=== PATIENT | male | born 1970 | race Caucasian/White ===

== ENCOUNTER 2024-01-19 20:34 | Inpatient (IN) | payer OTHER, MEDICARE, SELFPAY ==
--- NOTE | ~2024-01-19 | US_ITS ---
EXAMINATION: US arterial ankle brachial ind DATE: 01/20/2024 14:33 INDICATION: Peripheral arterial disease. TECHNIQUE: Segmental pressures and plethysmographic and Doppler waveforms of the brachial and lower e xtremity arteries were obtained. COMPARISON: None. FINDINGS: Right and left brachial artery pressures of 114 mm Hg and 111 mm Hg, respectively, are concordant (no rmal difference <= 30 mmHg). The right ankle-brachial index (ALFRED) is 0.54 (normal >= 0.9-1.0). The right great toe-brachial index (TBI) cannot be measured (normal >= 0.65). Arterial Doppler waveforms are monophasic and broadened at the ankle. The left ALFRED is 0.39. The left TBI cannot be measured. Arterial Doppler waveforms are noisy at the an kle. IMPRESSION: 1. Moderately decreased right ALFRED and severely decreased left ALFRED, consistent with arterial occlusive disease. 2. Great toe arterial signal not reliably detectable on either side. Reviewed, dictated and finalized at location A. IMPRESSION: 1. Moderately decreased right ALFRED and severely decreased left ALFRED, consistent w ith arterial occlusive disease. 2. Great toe arterial signal not reliably detectable on either side.
--- NOTE | ~2024-01-19 | CT_ITS ---
EXAMINATION: CTA abd aorta runoff DATE: 01/20/2024 14:54 INDICATION: Peripheral arterial disease. TECHNIQUE: Computed tomographic angiography (CTA) of the abdominal, pelvis, and both lower extremitie s was performed with 122 mL Omnipaque-350 intravenous contrast. Automated exposure control and iterat tyrese reconstruction technique were employed. The dose-length product was 613.66 mGy-cm. Maximum intens ity projection 3D-reconstructions of the arteries were created by the technologist on a separate work station. COMPARISON: ABIs 01/20/2024 FINDINGS: ABDOMINAL AORTA AND ITS BRANCHES: Aortic atherosclerosis is noted. There is severe stenosis of celiac axis and moderate stenosis of sup erior mesenteric artery. Splenic artery and common hepatic artery arise from superior mesenteric jeffry ry. There is mild stenosis of the renal arteries. There is no significant stenosis of inferior mesent dolly artery. PELVIC VASCULATURE: There is mild stenosis of the common iliac arteries, external iliac arteries, and internal iliac jeffry dewayne. RIGHT LOWER EXTREMITY VASCULATURE: There is moderate stenosis of the right common femoral artery. There is mild stenosis of right profun da femoral artery. There is severe stenosis of right superficial femoral artery. There is total occlu tori of right superficial femoral artery distally with reconstitution of flow in the popliteal artery . There is severe stenosis of the proximal popliteal artery and mild stenosis of distal popliteal art cristina. There is mild stenosis of the tibioperoneal trunk. There is mild stenosis of anterior tibial art cristina and posterior tibial artery. There is no significant stenosis of the peroneal artery. LEFT LOWER EXTREMITY VASCULATURE: There is moderate stenosis of left common femoral artery. There is mild stenosis of the fundus femora l artery. There is a long total occlusion of left superficial femoral artery with reconstitution of f low in above-knee popliteal artery. There is severe stenosis of the above-knee popliteal artery and m oderate stenosis of below-knee popliteal artery. There is mild stenosis of moderate stenosis of the t ibioperoneal trunk. There is moderate stenosis of the proximal anterior tibial artery. There is mild stenosis of posterior tibial artery and peroneal artery. ADDITIONAL FINDINGS: The visualized portions of the lung bases demonstrate mild atelectasis. No pleural effusion. The hear t size is normal. No pericardial effusion. There are coronary artery calcifications. Paraesophageal v arices are noted. There is a subcapsular hematoma of the liver with maximum thickness of 8 mm. Calcif ications in the liver are consistent with old granulomatous disease. The gallbladder is normal. The s pleen is small. There are surgical clips in left upper quadrant. The pancreas and adrenal glands are normal. There is cortical thinning of the kidneys. There is a 6 mm cyst in right kidney. There are no dilated loops of bowel. The appendix is not visualized. There are no pathologically enlarged lymph n odes. There is no free intraperitoneal fluid. There is severe lower lumbar spondylosis. There is scre w fixation of right fibula. There is an old healed fracture of distal right tibia. IMPRESSION: 1. Severe stenosis of celiac axis and moderate stenosis of superior mesenteric artery. 2. Moderate stenosis of right common femoral artery. 3. Total occlusion of right superficial femoral artery with reconstitution of flow in popliteal arter y. 4. Three-vessel runoff on the right. 5. Moderate stenosis of left common femoral artery. 6. Total occlusion of left superficial femoral artery with reconstitution of flow in above-knee popli teal artery. 7. Severe stenosis of left popliteal artery and moderate stenosis of the tibioperoneal trunk and prox imal anterior tibial artery. 8. Three-vessel runoff on the left. 9. Subcapsular hematoma of the liver.
--- NOTE | 2024-01-19 20:49 | ADMGEN ---
This patient, Armen Steward, was admitted to Medical Room 345-. Patient/family oriented to hospital policies and general routines including ID bracelet, bed and alarms, visiting hours, pain management, procedures, bathroom and other care routines, personal items, smoking policy, room service/diet, and visiting hours. Information on how to activate the Rapid Response Team has been discussed. Patient/Family are encouraged to report perceived risks to care and to ask questions if they do not understand what they are told or what they should do.
[2024-01-19 23:02] VITALS: BP 107/53; PULSE 82; RESP 20; TEMP 36.4; O2SAT 99; BMI 17.9
--- NOTE | 2024-01-19 23:28 | PM.IMHP ---
H&P: HPI History of Present Illness Date/Time: 01/19/24 23:30 Chief Complaint: Third toe osteomyelitis. Narrative: This is a pleasant 53-year-old male smoker with history of alcohol abuse, hypertension, chronic obstructive pulmonary disease, cirrhosis, peripheral vascular disease, and MRSA infection at the site of right ankle hardware who is being directly admitted to the medical floor from the emergency department at [facility] in [place] for treatment of 3rd toe osteomyelitis. The patient provides the following history. He reports having a callus at the tip of the left 3rd toe for quite some time which he ?popped off? recently. Since that time he has developed a painful ulcer which has been draining foul-smelling pus. He went to the ER today as the area has become dark in appearance. It is quite painful and the pain seems to spread up into his ankle and posterior calf. He goes on to say that is not unusual for him to have pain in his calf with walking and in fact he has seen a vascular surgeon regarding his claudication who told him that he would not operate unless the patient quit smoking. He denies fever, chills, sweats, nausea, and vomiting. In the ED: He was afebrile on arrival with stable vital signs. Labs were significant for WBC count of 11.52, hemoglobin 8.9, hematocrit 30.8, MCV 67.4, platelets 331, sodium 131, potassium 3.4, chloride 92, BUN 11, creatinine 1.22, glucose 107, CRP 3.21, lactic acid 2.4, ESR 117. Left 3rd toe x-ray showed findings consistent with osteomyelitis involving the tuft of the left 3rd distal phalanx. He was given a dose of vancomycin in transfer was initiated to [place] due to lack of surgery coverage. Review of Systems Review of Systems: 12 systems were reviewed. No recent cold or flu symptoms. No chest or pleuritic pain. No cough or shortness of breath. No nausea, vomiting, or diarrhea. He denies ever having signs or symptoms of alcohol withdrawal. No history of alcohol withdrawal seizure. Except as documented, all other systems were reviewed and are negative. [facility] Past Medical History Medical History (Updated 01/20/24 @ 00:01 by Sheri Taylor PA-C) Alcohol abuse Chronic obstructive pulmonary disease Chronic pain syndrome Cirrhosis of liver Gastroesophageal reflux disease GI bleed Hypertension MRSA infection Infected ankle hardware. Peripheral vascular disease Shingles Tobacco abuse Surgical History Surgical History (Updated 01/19/24 @ 23:57 by Sheri Taylor PA-C) History of appendectomy History of cataract extraction History of open reduction and internal fixation (ORIF) procedure Repair right lower extremity fracture complicated by MRSA infection require removal of hardware with irrigation and debridement. History of splenectomy Family History Family History Sibling Diabetes mellitus Mother Diabetes mellitus Grandparent Hypertension Social History Social History (Updated 01/19/24 @ 23:32 by Sheri Taylor PA-C) Social History: Surrogate medical decision maker: Tammy Steward, spouse. Code status: Full code. Smoking packs per day: 1 Smoking cigarettes per day: 20.0 Smoking status: Current some day smoker Tobacco type: cigarettes Alcohol intake: current Drinks per week: 105 Alcohol use details: Fifteen beers a day. Substance use type: marijuana Do You Feel Safe in your Home?: Yes Lack of Transportation: No Lack of Food: Never True Current Housing: I Have Housing Concerned About Future Housing: No Difficulty Paying Gas/Electric Bills: No Difficulty Paying for Meds: No Currently Unemployed: No Education: Grade School Difficulty w/ Childcare or Family Care: No Spiritual care concerns: No Meds Home Medications and Allergies Home Medications Medication Instructions Recorded Confirmed Type cyclobenzaprine 10 mg tablet 10 mg PO H
[2024-01-19] MEDS: PIPERACILLN/TAZ 3.375GM/NS50ML 3.375 GM/50 ML BAG IVPB (23:59)
[2024-01-20] VITALS: BP 107/53
[2024-01-20 00:02] LABS: Glucose Point of Care 118 mg/dl (65-105)
[2024-01-20] MEDS: HYDROcodone/acetaminophen (*CRX) 5-325 MG TABLET 1 TAB PO ×2 (00:03→20:20)
[2024-01-20] MEDS: VANCOMYCIN 1,500 MG/NS 500 ML 1,500 MG/500 ML BAG 125 MG IVPB (00:46)
[2024-01-20 05:31] LABS: Hematocrit 29.7 % (42.0-52.0); Hemoglobin 8.2 g/dL (14.0-18.0); Immature Reticulocyte Fraction 26.9 % (3.0-15.9); Mean Corpuscular HGB Conc 27.6 g/dl (32-36); Mean Corpuscular Hemoglobin 19.4 pg (26-34); Mean Corpuscular Volume 70.2 fl (80-100); Mean Platelet Volume 8.9 fl (7.4-10.4); Platelet Count Result 316 k/mm3 (150-375); Red Blood Count 4.23 M/mm3 (4.6-6.20); Red Cell Distribution Width 23.1 % (11.5-14.5); Reticulocyte Hemoglobin Conten 23.2 pg (28.2-36.6); Reticulocyte Percent 2.82 % (0.7-4.3); Reticulocytes Absolute 0.12 10^6/uL (0.02-0.10); White Blood Count 10.4 K/mm3 (4.5-10.0)
[2024-01-20 05:44] LABS: Iron 23 ug/dL (49-181)
[2024-01-20 05:48] LABS: Alanine Aminotransferase 13 U/L (6-50); Albumin Level 3.6 g/dL (3.5-5.1); Alkaline Phosphatase 155 U/L (38-126); Anion Gap 9 mmol/L (4-12); Aspartate Amino Transferase 29 U/L (17-59); Bilirubin,Total 0.6 mg/dL (0.2-1.3); Blood Urea Nitrogen 15 mg/dL (9-20); CRP 2.9 mg/dL (<1.0); Calcium 8.5 mg/dL (8.4-10.2); Carbon Dioxide 24 mmol/L (22-30); Chloride 102 mmol/L (98-107); Estimated CRCL calculation 55 ml/min; Estimated Glomerular Filt Rate > 60; Glucose 97 mg/dL (65-110); Magnesium 1.7 mg/dL (1.6-2.3); Potassium 3.8 mmol/L (3.4-5.0); Sodium 135 mmol/L (137-145)
[2024-01-20 05:54] LABS: Percent Iron Saturation 6 % (20-50)
[2024-01-20 06:00] VITALS: BP 125/76; PULSE 84; RESP 20; TEMP 36.3; O2SAT 100
[2024-01-20] MEDS: MORPHINE SULFATE (*CRX) 2 MG/ML INJ IV PUSH (06:21)
[2024-01-20 06:54] LABS: Folic Acid > 20.0 ng/mL (2.76->20)
[2024-01-20] MEDS: PIPERACILLN/TAZ 3.375GM/NS50ML 3.375 GM/50 ML BAG IVPB ×4 (07:20→23:46)
--- NOTE | 2024-01-20 07:39 | P.PNIM_ITS ---
Progress Note: A&P Assessment and Plan (1) Osteomyelitis of toe: Code(s): M86.9 - Osteomyelitis, unspecified Status: Acute Assessment and Plan: 01/20/24: * Continue Vancomycin and Zosyn * Consult placed to general surgery * ALFRED index ordered * Wound culture ordered * Neurological checks q2h * Continue pain control * CRP 2.9, WBC 10.4 (2) Peripheral vascular disease: Code(s): I73.9 - Peripheral vascular disease, unspecified Status: Acute Assessment and Plan: 01/20/24: * Will get ALFRED today * Patient has history of claudication (3) Alcohol abuse: Code(s): F10.10 - Alcohol abuse, uncomplicated Status: Acute Assessment and Plan: 01/20/24: * CIWA protocol in place * Drinks 15 beers a day * Denies history of withdrawal (4) Tobacco abuse: Code(s): Z72.0 - Tobacco use Status: Acute Assessment and Plan: 01/20/24: * current 1 pack per day user * Nicotine patch ordered (5) Hypertension: Code(s): I10 - Essential (primary) hypertension Status: Acute Assessment and Plan: 01/20/24: * B/P ranging 107/53-125/76 * continue Lasix and spironolactone (6) Chronic obstructive pulmonary disease: Code(s): J44.9 - Chronic obstructive pulmonary disease, unspecified Status: Acute Assessment and Plan: 01/20/24: * of note (7) Cirrhosis of liver: Code(s): K74.60 - Unspecified cirrhosis of liver Status: Acute Assessment and Plan: 01/20/24: * likely related to alcohol abuse * Liver enzymes and bili are WNL * continue to monitor lab trends (8) Gastroesophageal reflux disease: Code(s): K21.9 - Gastro-esophageal reflux disease without esophagitis Status: Acute Assessment and Plan: 01/20/24: * Continue protonix (9) Chronic pain syndrome: Code(s): G89.4 - Chronic pain syndrome Status: Acute Assessment and Plan: 01/20/24: * Continue [place] 5/325 and flexeril (10) Microcytic anemia: Code(s): D50.9 - Iron deficiency anemia, unspecified Status: Acute Assessment and Plan: 01/20/24: * Hgb 8.2, MVC 70.2, Iron 23, Ferritin 13.30, Folate >20.0, Vitamin B12 546 * Patient not able to tolerate oral ferrous sulfate and has not been taking this for quite some time Time Spent With Patient Time with patient: Greater than 35 minutes Subjective Date/time seen: 01/20/24 07:39 Interval history: This is a 53 year old male with a significant past medical history of alcohol abuse, hypertension, COPD, cirrhosis, peripheral vascular disease, MRSA infection at the site of right ankle hardware who was a direct admit to the medical floor at [facility] on 01/19/24 with osteomyelitis in his left 3rd toe. Patient had a callus at the tip of the left 3rd toe for quite some time which he popped off recently. Since that time he has developed a painful ulcer which started draining foul-smelling drainage. He originally presented to [facility] hospital with pain which spread up into his ankle and posterior calf. Work up at [facility] revealed osteomyelitis. [facility] transferred patient here as a direct admit to [facility] for surgical consultation. He was given a dose of Vancomycin en route. Work up in the hospital included labs which shown a WBC 10.4, Hgb 8.2, Na+ 135, Alk phos 155, CRP 2.9, Folate >20.0, TSH 3.60, Vitamin B12 546.0, Iron 23, TIBC 417, Ferritin 13.30. Patient was started on Vancomycin and Zosyn. On examination melissa
--- NOTE | 2024-01-20 07:39 | PM.IMPN ---
Progress Note: A&P Assessment and Plan (1) Osteomyelitis of toe: Code(s): M86.9 - Osteomyelitis, unspecified Status: Acute Assessment and Plan: 01/20/24: Continue Vancomycin and Zosyn Consult placed to general surgery ALFRED index ordered Wound culture ordered Neurological checks q2h Continue pain control CRP 2.9, WBC 10.4 (2) Peripheral vascular disease: Code(s): I73.9 - Peripheral vascular disease, unspecified Status: Acute Assessment and Plan: 01/20/24: Will get ALFRED today Patient has history of claudication (3) Alcohol abuse: Code(s): F10.10 - Alcohol abuse, uncomplicated Status: Acute Assessment and Plan: 01/20/24: CIWA protocol in place Drinks 15 beers a day Denies history of withdrawal (4) Tobacco abuse: Code(s): Z72.0 - Tobacco use Status: Acute Assessment and Plan: 01/20/24: current 1 pack per day user Nicotine patch ordered (5) Hypertension: Code(s): I10 - Essential (primary) hypertension Status: Acute Assessment and Plan: 01/20/24: B/P ranging 107/53-125/76 continue Lasix and spironolactone (6) Chronic obstructive pulmonary disease: Code(s): J44.9 - Chronic obstructive pulmonary disease, unspecified Status: Acute Assessment and Plan: 01/20/24: of note (7) Cirrhosis of liver: Code(s): K74.60 - Unspecified cirrhosis of liver Status: Acute Assessment and Plan: 01/20/24: likely related to alcohol abuse Liver enzymes and bili are WNL continue to monitor lab trends (8) Gastroesophageal reflux disease: Code(s): K21.9 - Gastro-esophageal reflux disease without esophagitis Status: Acute Assessment and Plan: 01/20/24: Continue protonix (9) Chronic pain syndrome: Code(s): G89.4 - Chronic pain syndrome Status: Acute Assessment and Plan: 01/20/24: Continue [place] 5/325 and flexeril (10) Microcytic anemia: Code(s): D50.9 - Iron deficiency anemia, unspecified Status: Acute Assessment and Plan: 01/20/24: Hgb 8.2, MVC 70.2, Iron 23, Ferritin 13.30, Folate >20.0, Vitamin B12 546 Patient not able to tolerate oral ferrous sulfate and has not been taking this for quite some time Time Spent With Patient Time with patient: Greater than 35 minutes Subjective Date/time seen: 01/20/24 07:39 Interval history: This is a 53 year old male with a significant past medical history of alcohol abuse, hypertension, COPD, cirrhosis, peripheral vascular disease, MRSA infection at the site of right ankle hardware who was a direct admit to the medical floor at [facility] on 01/19/24 with osteomyelitis in his left 3rd toe. Patient had a callus at the tip of the left 3rd toe for quite some time which he popped off recently. Since that time he has developed a painful ulcer which started draining foul-smelling drainage. He originally presented to [facility] with pain which spread up into his ankle and posterior calf. Work up at [facility] revealed osteomyelitis. [facility] transferred patient here as a direct admit to [facility] for surgical consultation. He was given a dose of Vancomycin en route. Work up in the hospital included labs which shown a WBC 10.4, Hgb 8.2, Na+ 135, Alk phos 155, CRP 2.9, Folate >20.0, TSH 3.60, Vitamin B12 546.0, Iron 23, TIBC 417, Ferritin 13.30. Patient was started on Vancomycin and Zosyn. On examination today patient is alert oriented x3, lying in the bed. Patient denies any fever, chills, nausea, vomiting, diarrhea, abdominal pain, chest pain, shortness a breath. Patient endorses pain in his left foot and ankle that he rates as moderate and a dry mouth. Plan for US arterial ankle and brachial index today. Order placed for wound cultures. General surgery consulted. Review of Systems Review of Systems: All systems reviewed & are unremarkable exce
[2024-01-20] MEDS: THIAMINE HCL 200 MG/2 ML VIAL 100 MG IV PUSH (09:32)
[2024-01-20 10:52] VITALS: BMI 17.6
[2024-01-20 14:00] VITALS: BP 133/75; PULSE 81; RESP 16; TEMP 36.3; O2SAT 100
--- NOTE | 2024-01-20 14:03 | PC.NURSE ---
Patient off the unit to US
--- NOTE | 2024-01-20 15:28 | P.CDI_ITS ---
CDI Query Clarification Request BMI 17.6 Nutritional Diagnostic Statement: Severe Protein Calorie Malnutrition as related to inadequate protein-energy intake with increased protein energy needs in setting of chronic disease as evidenced by moderate subcutaneous fat loss (orbital fat pads) and muscle wasting and significant weight loss of 9%(13 ibs) in 1 month. Please refer to the comprehensive nutrition assessment for further information. If you agree with the diagnosis of protein calorie malnutrition, please add to problem list including severity of malnutrition if known: * Mild * Moderate * Severe * Other/Unknown <GAEL Aguila - Last Filed: 01/20/24 15:29> Clarified Diagnosis Clarified Diagnosis: Patient has severe protein calorie malnutrition likely due to alcoholism and poor protein intake. <Pia Tejada APRN - Last Filed: 01/21/24 15:53>
--- NOTE | 2024-01-20 16:31 | PM.CNGS ---
Assessment and Plan Assessment and plan (1) Osteomyelitis of toe: Code(s): M86.9 - Osteomyelitis, unspecified Status: Acute Assessment and Plan: The patient has peripheral vascular disease with dry gangrene of his distal left 3rd toe. There is no surrounding cellulitis. His WBC count was 10,400 on admission. X-rays of the toe show osteomyelitis involving the tuft of the left 3rd distal phalanx. On exam, the distal phalanx is exposed at the area of the dry gangrene. There is no indication for urgent surgical intervention, although he will likely need his left 3rd toe amputated at some point, which was discussed with the patient. We have ordered ALFRED's and CTA runoff to further evaluate his peripheral vascular disease. He has multiple areas of stenosis bilaterally, but specifically with concern on the left lower extremity as this would potentially affect healing for an amputation. We would recommend referral to vascular surgery as an outpatient for evaluation prior to proceeding with a toe amputation. From our standpoint, he can be transitioned to oral antibiotics and discharged once his pain is well controlled with plan for close follow-up with vascular surgery as an outpatient. (2) Dry gangrene: Code(s): I96 - Gangrene, not elsewhere classified Status: Acute (3) Peripheral vascular disease: Code(s): I73.9 - Peripheral vascular disease, unspecified Status: Acute (4) Alcohol abuse: Code(s): F10.10 - Alcohol abuse, uncomplicated Status: Acute (5) Tobacco abuse: Code(s): Z72.0 - Tobacco use Status: Acute Assessment and Plan: Discussed the importance of smoking cessation, which the patient is aware of and has discussed with the vascular surgeon as well. (6) Cirrhosis of liver: Code(s): K74.60 - Unspecified cirrhosis of liver Status: Acute (7) Chronic obstructive pulmonary disease: Code(s): J44.9 - Chronic obstructive pulmonary disease, unspecified Status: Acute (8) Hypertension: Code(s): I10 - Essential (primary) hypertension Status: Acute (9) Microcytic anemia: Code(s): D50.9 - Iron deficiency anemia, unspecified Status: Acute Plan I have discussed the patient's case and plan of care with Dr. Gracia. History of Present Illness Consult details Consult date: 01/20/24 Reason for consult: other (Osteomyelitis) Requesting physician: Pia Tejada, MINOR Narrative: This is a 54-year-old man with a history of alcohol abuse, cirrhosis, tobacco abuse, hypertension, COPD, peripheral vascular disease, and MRSA infection at the site of the right ankle with hardware, who was directly admitted to the medical floor from the emergency department at [facility] in [place] for treatment of left third toe osteomyelitis. He reports noticing a callus at the tip of the left third toe for quite some time which he recently removed. Over the past 3-4 days, he has developed a painful ulcer that has been draining foul-smelling pus. This area also became painful. He reports having pain that goes up his foot and his left calf with ambulating. He reports less than 50 ft claudication. He noticed a left foot ulcer became dark today and he decided to go to the ED for evaluation. In the ED, he was afebrile with stable vital signs. Labs were significant for a white blood cell count of 11,000, hemoglobin 8.9, sodium 131, potassium 3.4, BUN 11, creatinine 1.2, glucose 107, lactic acid 2.4. Left third toe x-ray showed findings consistent with osteomyelitis involving the tuft of the left third distal phalanx. He was given a dose of vancomycin and transferred for surgical evaluation. He was admitted by the hospitalist service. Our service was consulted for the osteomyelitis. He is now seen on the medical floor with family at the bedside. He denies any previous surgeries or infections on the left foot. Denies any previous vascular surgeries
[2024-01-20] MEDS: PANTOPRAZOLE 40 MG TABLET PO (17:56)
[2024-01-20] MEDS: CYCLOBENZAPRINE HCL 10 MG TABLET PO (20:18)
[2024-01-20] MEDS: GABAPENTIN 300 MG CAPSULE 600 MG PO (20:18)
[2024-01-20 21:01] VITALS: BP 102/61; PULSE 82; RESP 20; TEMP 36.6; O2SAT 100
[2024-01-20 23:55] LABS: Glucose Point of Care 105 mg/dl (65-105)
[2024-01-21] MEDS: VANCOMYCIN 1,000 MG/NS 250 ML 1,000 MG/250 ML BAG 250 MG IVPB (00:19)
[2024-01-21] MEDS: PIPERACILLN/TAZ 3.375GM/NS50ML 3.375 GM/50 ML BAG IVPB (05:03)
[2024-01-21 05:11] LABS: Glucose Point of Care 88 mg/dl (65-105)
[2024-01-21 05:14] LABS: Basophils Absolute Auto 0.1 K/mm3 (0.0-0.1); Basophils Percent Auto 1.7 % (0.2-1.2); Eosinophils Absolute Auto 1.2 K/mm3 (0-0.3); Eosinophils Percent Auto 14.2 % (0-4.4); Hemoglobin 8.1 g/dL (14.0-18.0); Immature Granulocyte Absolute 0.02 K/mm3 (0.00-0.031); Immature Granulocyte Percent A 0.2 % (0-0.5); Lymphocytes Absolute Auto 2.01 K/mm3 (0.9-3.2); Mean Corpuscular HGB Conc 27.9 g/dl (32-36); Mean Corpuscular Hemoglobin 19.3 pg (26-34); Mean Corpuscular Volume 69.2 fl (80-100); Mean Platelet Volume 8.8 fl (7.4-10.4); Monocytes Absolute Auto 1.1 K/mm3 (0.1-0.6); Monocytes Percent Auto 13.3 % (2.6-8.5); Neutrophils Absolute Auto 3.9 K/mm3 (1.3-6.7); Neutrophils Percent Auto 46.6 % (45.5-73.1); Platelet Count Result 311 k/mm3 (150-375); Red Blood Count 4.19 M/mm3 (4.6-6.20); Red Cell Distribution Width 23.1 % (11.5-14.5); White Blood Count 8.4 K/mm3 (4.5-10.0)
[2024-01-21 05:32] LABS: Alanine Aminotransferase 12 U/L (6-50); Albumin Level 3.4 g/dL (3.5-5.1); Alkaline Phosphatase 145 U/L (38-126); Anion Gap 9 mmol/L (4-12); Aspartate Amino Transferase 26 U/L (17-59); Bilirubin,Total 0.5 mg/dL (0.2-1.3); Blood Urea Nitrogen 12 mg/dL (9-20); Calcium 8.6 mg/dL (8.4-10.2); Carbon Dioxide 24 mmol/L (22-30); Chloride 103 mmol/L (98-107); Estimated CRCL calculation 54 ml/min; Estimated Glomerular Filt Rate > 60; Glucose 94 mg/dL (65-110); Magnesium 1.8 mg/dL (1.6-2.3); Potassium 3.8 mmol/L (3.4-5.0); Sodium 136 mmol/L (137-145)
[2024-01-21 05:34] LABS: Anisocytosis 1+; Hypochromasia 1+; Ovalocytes 1+; Platelet Estimate Adequate (Adequate); Poikilocytosis 1+; Schistocytes None Seen
[2024-01-21 06:00] VITALS: BP 100/52; PULSE 63; RESP 20; TEMP 36.4; O2SAT 100
[2024-01-21] MEDS: PANTOPRAZOLE 40 MG TABLET PO (08:40)
[2024-01-21] MEDS: THIAMINE HCL 200 MG/2 ML VIAL 100 MG IV PUSH (08:40)
[2024-01-21] MEDS: SPIRONOLACTONE 50 MG TABLET 100 MG PO (08:40)
[2024-01-21] MEDS: FUROSEMIDE 80 MG TABLET PO (08:40)
[2024-01-21] MEDS: FOLIC ACID 1 MG TABLET PO (08:40)
--- NOTE | 2024-01-21 09:41 | PM.PNGS ---
Progress Note: A&P Assessment and Plan (1) Osteomyelitis of toe: Code(s): M86.9 - Osteomyelitis, unspecified Status: Acute Assessment and Plan: The patient has peripheral vascular disease with dry gangrene of his distal left 3rd toe. There is no surrounding cellulitis. His WBC count is normal. There is no indication for urgent surgical intervention, although he will likely need his left 3rd toe amputated at some point. ALFRED's show moderately decreased right ALFRED and severely decreased left ALFRED c/w arterial occlusive disease. CTA showed multiple areas of stenosis in the celiac axis, superior mesenteric artery, and bilateral lower extremities. After reviewing the CTA with Dr. Gracia, we would recommend referral to vascular surgery as an outpatient prior to proceeding with an amputation to see if there is any vascular intervention that could be done to improve arterial flow to the left foot. From our standpoint, he can be discharged on oral antibiotics with outpatient vascular surgery referral. The patient is from [place], [place] and would prefer to see a vascular surgeon in [place], which is closer to home. This is the same vascular surgeon he saw once in the past. Will have nursing get a disc of his CTA and ABIs for the patient to take to the vascular surgeon in follow-up. They will also try sending the images electronically to [facility]. (2) Dry gangrene: Code(s): I96 - Gangrene, not elsewhere classified Status: Acute (3) Peripheral vascular disease: Code(s): I73.9 - Peripheral vascular disease, unspecified Status: Acute Plan I have discussed the patient's case and plan of care with Dr. Gracia. Subjective Subjective Date/Time Seen: 01/21/24 09:41 Patient reports: no new complaints Interval history: Patient is doing well today. No acute events overnight. Pain is well controlled. Tolerating a diet. Exam Const: General: no acute distress Extrem: Other: There is dry gangrene of the distal tip of the left 3rd toe to the DIP joint with the tip of the bone exposed. No surrounding erythema or edema of the toe or foot. Exam unchanged since yesterday. Objective Data Vital Signs Vital Signs: Vital Signs - 24 hr 01/20/24 14:00 01/20/24 20:00 01/20/24 21:01 Temperature 97.4 F L 97.8 F Pulse Rate 81 82 Respiratory Rate 16 20 Blood Pressure 133/75 102/61 Pulse Oximetry 100 100 Oxygen Delivery Room Air 01/21/24 06:00 Temperature 97.6 F Pulse Rate 63 Respiratory Rate 20 Blood Pressure 100/52 L Pulse Oximetry 100 Oxygen Delivery Intake/Output Intake/Output: Intake & Output 01/18/24 01/19/24 01/20/24 01/21/24 23:59 23:59 23:59 23:59 Intake Total 1939 1330 Balance 194 1330 Meds/Results Medications: Active Medications Generic Name Dose Route Start Last Admin Trade Name Freq PRN Reason Stop Dose Admin Acetaminophen 650 mg 01/19/24 23:21 Acetaminophen 325 Mg Tablet PO Q6H PRN Mild Pain (1-3) or Fever Hydrocodone Bitart/Acetaminophen 1 tab 01/19/24 23:48 01/20/24 20:20 Hydrocodone/Acetaminophen (*Crx) 5-325 Mg Tablet PO 1 tab Q6H PRN Administration Pain Rated 4-6 Chlordiazepoxide HCl 25 mg 01/19/24 23:21 Chlordiazepoxide (*Crx) 25 Mg Capsule PO Q6H PRN CIWA 3-8 Cyclobenzaprine HCl 10 mg 01/20/24 21:00 01/20/24 20:18 Cyclobenzaprine Hcl 10 Mg Tablet PO 10 mg HS ANGEL Administration Dextrose 12.5 gm 01/19/24 23:21 Dextrose 50% 25 Gm/50 Ml Syringe IV PUSH PRN PRN Hypoglycemia Protocol Folic Acid 1 mg 01/20/24 09:00 01/21/24 08:40 Folic Acid 1 Mg Tablet PO 1 mg DAILY ANGEL Administration Furosemide 80 mg 01/20/24 09:00 01/21/24 08:40 Furosemide 80 Mg Tablet PO 80 mg DAILY ANGEL Administration Gabapentin 600 mg 01/20/24 21:00 01/20/24 20:18 Gabapentin 300 Mg Capsule PO 600 mg HS ANGEL Administration Glucagon 1 mg 01/19/24 23:21 Gluc
[2024-01-21] MEDS: cefTRIAXone 2 GM/NS 100 ML 2 GM/100 ML BAG IVPB (11:41)
[2024-01-21 12:13] LABS: Glucose Point of Care 132 mg/dl (65-105)
--- NOTE | 2024-01-21 12:37 | P.PNIM_ITS ---
Progress Note: A&P Assessment and Plan (1) Osteomyelitis of toe: Code(s): M86.9 - Osteomyelitis, unspecified Status: Acute Assessment and Plan: 01/20/24: * Continue Vancomycin and Zosyn * Consult placed to general surgery * ALFRED index ordered * Wound culture ordered * Neurological checks q2h * Continue pain control * CRP 2.9, WBC 10.4 01/21/24: * Antibiotics changed to vancomycin and Rocephin * General surgery treating conservatively as patient will need to follow up with vascular surgery due to his severe claudication * Neuro checks Q shift * Continue pain control * White blood cell count 8.4 (2) Peripheral vascular disease: Code(s): I73.9 - Peripheral vascular disease, unspecified Status: Acute Assessment and Plan: 01/20/24: * Will get ALFRED today * Patient has history of claudication 01/21/24: * AP showing moderately decreased right ALFRED in severely decreased left ALFRED consistent with arterial occlusive disease, great toe arterial signal not write a we detectable on either side. * Aorta with runoff CTA showed severe stenosis of celiac axis and moderate stenosis of superior mesenteric artery, moderate stenosis of right common femoral artery, total occlusion of right superficial femoral artery with reconstitution of flow and popliteal artery, 3 vessel runoff on the right, moderate stenosis of left common femoral artery, total occlusion of left superficial femoral artery with reconstitution of flow in above knee popliteal artery, severe stenosis of left popliteal artery and moderate stenosis of the tibioperoneal trunk and proximal anterior tibial artery, 3 vessel runoff on the left, subcapsular hematoma of the liver * Patient will need to follow with vascular surgery on an outpatient basis * General surgery treating conservatively until patient follows with vascular surgery (3) Alcohol abuse: Code(s): F10.10 - Alcohol abuse, uncomplicated Status: Acute Assessment and Plan: 01/20/24: * CIWA protocol in place * Drinks 15 beers a day * Denies history of withdrawal 01/21/24: * No change to current treatment plan (4) Tobacco abuse: Code(s): Z72.0 - Tobacco use Status: Acute Assessment and Plan: 01/20/24: * current 1 pack per day user * Nicotine patch ordered 01/21/24: * No change to current treatment plan (5) Hypertension: Code(s): I10 - Essential (primary) hypertension Status: Acute Assessment and Plan: 01/20/24: * B/P ranging 107/53-125/76 * continue Lasix and spironolactone 01/21/24: * No change to current treatment plan (6) Chronic obstructive pulmonary disease: Code(s): J44.9 - Chronic obstructive pulmonary disease, unspecified Status: Acute Assessment and Plan: 01/20/24: * of note (7) Cirrhosis of liver: Code(s): K74.60 - Unspecified cirrhosis of liver Status: Acute Assessment and Plan: 01/20/24: * likely related to alcohol abuse * Liver enzymes and bili are WNL * continue to monitor lab trends 01/21/24: * No change (8) Gastroesophageal reflux disease: Code(s): K21.9 - Gastro-esophageal reflux disease without esophagitis Status: Acute Assessment and Plan: 01/20/24: * Continue protonix 01/21/24: * No change to current treatment plan (9) Chronic pain syndrome: Code(s): G89.4 - Chronic pain syndrome Status: Acute Assessment and Plan: 01/20/24: * Continue [place] 5/325 and flex
--- NOTE | 2024-01-21 12:37 | PM.IMPN ---
Progress Note: A&P Assessment and Plan (1) Osteomyelitis of toe: Code(s): M86.9 - Osteomyelitis, unspecified Status: Acute Assessment and Plan: 01/20/24: Continue Vancomycin and Zosyn Consult placed to general surgery ALFRED index ordered Wound culture ordered Neurological checks q2h Continue pain control CRP 2.9, WBC 10.4 01/21/24: Antibiotics changed to vancomycin and Rocephin General surgery treating conservatively as patient will need to follow up with vascular surgery due to his severe claudication Neuro checks Q shift Continue pain control White blood cell count 8.4 (2) Peripheral vascular disease: Code(s): I73.9 - Peripheral vascular disease, unspecified Status: Acute Assessment and Plan: 01/20/24: Will get ALFRED today Patient has history of claudication 01/21/24: AP showing moderately decreased right ALFRED in severely decreased left ALFRED consistent with arterial occlusive disease, great toe arterial signal not write a we detectable on either side. Aorta with runoff CTA showed severe stenosis of celiac axis and moderate stenosis of superior mesenteric artery, moderate stenosis of right common femoral artery, total occlusion of right superficial femoral artery with reconstitution of flow and popliteal artery, 3 vessel runoff on the right, moderate stenosis of left common femoral artery, total occlusion of left superficial femoral artery with reconstitution of flow in above knee popliteal artery, severe stenosis of left popliteal artery and moderate stenosis of the tibioperoneal trunk and proximal anterior tibial artery, 3 vessel runoff on the left, subcapsular hematoma of the liver Patient will need to follow with vascular surgery on an outpatient basis General surgery treating conservatively until patient follows with vascular surgery (3) Alcohol abuse: Code(s): F10.10 - Alcohol abuse, uncomplicated Status: Acute Assessment and Plan: 01/20/24: [facility] Drinks 15 beers a day Denies history of withdrawal 01/21/24: No change to current treatment plan (4) Tobacco abuse: Code(s): Z72.0 - Tobacco use Status: Acute Assessment and Plan: 01/20/24: current 1 pack per day user Nicotine patch ordered 01/21/24: No change to current treatment plan (5) Hypertension: Code(s): I10 - Essential (primary) hypertension Status: Acute Assessment and Plan: 01/20/24: B/P ranging 107/53-125/76 continue Lasix and spironolactone 01/21/24: No change to current treatment plan (6) Chronic obstructive pulmonary disease: Code(s): J44.9 - Chronic obstructive pulmonary disease, unspecified Status: Acute Assessment and Plan: 01/20/24: of note (7) Cirrhosis of liver: Code(s): K74.60 - Unspecified cirrhosis of liver Status: Acute Assessment and Plan: 01/20/24: likely related to alcohol abuse Liver enzymes and bili are WNL continue to monitor lab trends 01/21/24: No change (8) Gastroesophageal reflux disease: Code(s): K21.9 - Gastro-esophageal reflux disease without esophagitis Status: Acute Assessment and Plan: 01/20/24: Continue protonix 01/21/24: No change to current treatment plan (9) Chronic pain syndrome: Code(s): G89.4 - Chronic pain syndrome Status: Acute Assessment and Plan: 01/20/24: Continue [place] 5/325 and flexeril 01/21/24: Change to current treatment plan (10) Microcytic anemia: Code(s): D50.9 - Iron deficiency anemia, unspecified Status: Acute Assessment and Plan: 01/20/24: Hgb 8.2, MVC 70.2, Iron 23, Ferritin 13.30, Folate >20.0, Vitamin B12 546 Patient not able to tolerate oral ferrous sulfate and has not been taking this for quite some time 01/21/24: No change to current treatment plan Time Spent With Patient Time with patient: 25 - 35 minutes Subjective Date/time seen:
[2024-01-21 13:35] VITALS: BP 97/68; PULSE 73; RESP 12; TEMP 36.8; O2SAT 100
--- NOTE | 2024-01-21 15:39 | PM.DS ---
DS: Admitting Diagnosis Discharge Date 01/21/24 Admitting Diagnosis Osteomyelitis of toe Peripheral vascular disease Alcohol abuse Tobacco abuse Hypertension COPD Cirrhosis of the liver GERD Chronic pain syndrome Microcytic anemia DS: Discharge Diagnosis Discharge Diagnosis (1) Osteomyelitis of toe: Code(s): M86.9 - Osteomyelitis, unspecified Status: Acute (2) Peripheral vascular disease: Code(s): I73.9 - Peripheral vascular disease, unspecified Status: Acute (3) Alcohol abuse: Code(s): F10.10 - Alcohol abuse, uncomplicated Status: Acute (4) Tobacco abuse: Code(s): Z72.0 - Tobacco use Status: Acute (5) Hypertension: Code(s): I10 - Essential (primary) hypertension Status: Acute (6) Chronic obstructive pulmonary disease: Code(s): J44.9 - Chronic obstructive pulmonary disease, unspecified Status: Acute (7) Cirrhosis of liver: Code(s): K74.60 - Unspecified cirrhosis of liver Status: Acute (8) Gastroesophageal reflux disease: Code(s): K21.9 - Gastro-esophageal reflux disease without esophagitis Status: Acute (9) Chronic pain syndrome: Code(s): G89.4 - Chronic pain syndrome Status: Acute (10) Microcytic anemia: Code(s): D50.9 - Iron deficiency anemia, unspecified Status: Acute (11) Dry gangrene: Code(s): I96 - Gangrene, not elsewhere classified Status: Acute (12) Severe protein-calorie malnutrition: Code(s): E43 - Unspecified severe protein-calorie malnutrition Status: Acute Assessment and Plan: Due to an adequate protein energy intake likely due to alcohol abuse Reported a 13 lb weight loss in the past month BMI 18.4, 58.1 kg DS: Summary Hospital Course Reason for hospitalization: Osteomyelitis of toe Peripheral vascular disease Alcohol abuse Tobacco abuse Hypertension COPD Cirrhosis of the liver GERD Chronic pain syndrome Microcytic anemia Hospital Course: 01/20/24: This is a 53 year old male with a significant past medical history of alcohol abuse, hypertension, COPD, cirrhosis, peripheral vascular disease, MRSA infection at the site of right ankle hardware who was a direct admit to the medical floor at [facility] on 01/19/24 with osteomyelitis in his left 3rd toe. Patient had a callus at the tip of the left 3rd toe for quite some time which he popped off recently. Since that time he has developed a painful ulcer which started draining foul-smelling drainage. He originally presented to [facility] with pain which spread up into his ankle and posterior calf. Work up at [facility] revealed osteomyelitis. [facility] transferred patient here as a direct admit to [facility] for surgical consultation. He was given a dose of Vancomycin en route. Work up in the hospital included labs which shown a WBC 10.4, Hgb 8.2, Na+ 135, Alk phos 155, CRP 2.9, Folate >20.0, TSH 3.60, Vitamin B12 546.0, Iron 23, TIBC 417, Ferritin 13.30. Patient was started on Vancomycin and Zosyn. On examination today patient is alert oriented x3, lying in the bed. Patient denies any fever, chills, nausea, vomiting, diarrhea, abdominal pain, chest pain, shortness a breath. Patient endorses pain in his left foot and ankle that he rates as moderate and a dry mouth. Plan for US arterial ankle and brachial index today. Order placed for wound cultures. General surgery consulted. 01/21/24: No new complaints today. Spoke with Dr. Gracia about IV antibiotics. He feels that the patient does not require antibiotics at this time considering that the tip of the toe is necrotic and that there are no cellulitis/infectious changes at this time. Dr. Gracia wants him to follow up with Vascular surgery as soon as possible to review the ALFRED scans that were done here at [place] before he gets the toe amputation to see if they can improve arterial flow to the left f
== END 2024-01-21 16:26 | disposition home or self-care (01) | DRG 539 ==
PROVIDERS: Physician Assistant; Admitting Provider Hospitalist; PCP Nurse Practitioner; Visit Provider Nurse Practitioner Acute Care
DX: M86.172 Other acute osteomyelitis, left ankle and foot (principal); E43 Unspecified severe protein-calorie malnutrition; Z68.1 Body mass index [BMI] 19.9 or less, adult; I73.9 Peripheral vascular disease, unspecified; I10 Essential (primary) hypertension; K70.30 Alcoholic cirrhosis of liver without ascites; J44.9 Chronic obstructive pulmonary disease, unspecified; K21.9 Gastro-esophageal reflux disease without esophagitis; G89.4 Chronic pain syndrome; D50.9 Iron deficiency anemia, unspecified; F10.10 Alcohol abuse, uncomplicated; F17.210 Nicotine dependence, cigarettes, uncomplicated; Z90.49 Acquired absence of other specified parts of digestive tract; Z98.49 Cataract extraction status, unspecified eye; Z90.81 Acquired absence of spleen
CPT/HCPCS: 36415; 75635; 80053; 82607; 82728; 82746; 82948; 83540; 83550; 83735; 84443; 85025; 85027; 85046; 86140; 93922; 96365; 96366; 96375; A9270; G0378; G0379; J0696; J2270; J2543; J3370; J3411; Q9967